=== PATIENT | male | born 1940 | race Two or more races ===

== ENCOUNTER 2021-08-24 05:13 | Inpatient (IN) | payer OTHER, MEDICAID ==
[~2021-08-24] VITALS: Ht 176.5 cm; Wt 77.9 kg
[2021-08-24 06:55] LABS: Albumin 2.6 g/dL (3.4-5.0); Calcium 8.3 mg/dL (8.5-10.1); Magnesium 3.1 mg/dL (1.6-2.6); Potassium 3.3 mmol/L (3.5-5.1)
[2021-08-24 06:59] LABS: Basophils # (auto) 0 10 ^3/uL (0-0.2); Basophils % (auto) 0.1 % (0.0-2.0); Eosinophils # (auto) 0 10 ^3/uL (0-0.8); Eosinophils % (auto) 0.1 % (0.0-7.0); Hematocrit 42.8 % (41.0-53.0); Hemoglobin 14.2 g/dL (13.5-17.5); Lymphocytes # (auto) 0.4 10 ^3/uL (0.4-5.4); Lymphocytes % (auto) 3.5 % (10.0-50.0); Mean Corpuscular Hemoglobin 29.8 pg (28.0-32.0); Mean Corpuscular Hgb Conc. 33.3 g/dL (32.0-36.0); Mean Corpuscular Volume 89.5 fL (80.0-100.0); Monocytes # (auto) 0.4 10 ^3/uL (0-1.3); Monocytes % (auto) 3.2 % (0.0-12.0); Neutrophils # (auto) 10.8 10 ^3/uL (1.6-8.6); Neutrophils % (auto) 93.1 % (37.0-80.0); Red Blood Cells 4.78 10^6/uL (4.5-5.90); Red Cell Distribution Width 13.4 % (11.8-14.3); White Blood Cell 11.6 10^3/uL (4.4-10.8)
[2021-08-24] MEDS ORDERED: AZITHROMYCIN 500MG/ 250ML 250 ML IV ONE (07:00)
[2021-08-24] MEDS ORDERED: ASCORBIC ACID 500 MG TAB PO ONE (07:00)
[2021-08-24] MEDS ORDERED: cefTRIAXone 1GM/50ML D5W 50 ML IV ONE (07:00)
[2021-08-24] MEDS ORDERED: ZINC SULFATE 220mg CAP or TAB PO ONE (07:00)
[2021-08-24] MEDS ORDERED: DexAMETHasone SOD PHOS 10MG/1ML VIAL INJ IV ONE (07:00)
[2021-08-24] MEDS ORDERED: CHOLECALCIFEROL (VITD3) 2,000 UNIT CAP/TAB PO ONE (07:00)
[2021-08-24 07:02] LABS: Total Protein 6.2 g/dL (6.4-8.2)
[2021-08-24 08:13] LABS: Lactic Acid w/Reflex 2.2 mmol/L (0.4-2.0)
[2021-08-24 08:28] LABS: INR 1.07 (0.9-1.15); Partial Thromboplastin Time 26.5 sec (23.6-33.0)
[2021-08-24] MEDS ORDERED: ENOXAPARIN SOD 60 MG/0.6 ML SYRINGE SC ONE (12:00)
[2021-08-24] MEDS ORDERED: MORPHINE SULFATE INJECTION 2 MG/ML SYRG IV PRN (13:15)
[2021-08-24] MEDS ORDERED: NITROGLYCERIN 0.4 MG SL TAB SL PRN (13:15)
[2021-08-24] MEDS ORDERED: ALUM & MAG HYDROX-SIMETH LIQ(MAALOX) 30 ML PO PRN (13:15)
[2021-08-24] MEDS ORDERED: DOCUSATE SOD 100 MG CAP PO PRN (13:15)
[2021-08-24] MEDS ORDERED: IOHEXOL 350 MG/ML 100ML IJ ONE (14:08)
[2021-08-24 23:19] VITALS: BP 130/80
[2021-08-25 05:00] VITALS: BP 143/72
[2021-08-25 06:58] LABS: Calcium 7.9 mg/dL (8.5-10.1); Potassium 3.6 mmol/L (3.5-5.1)
[2021-08-25 07:00] LABS: BUN/Creatinine Ratio 18.8
[2021-08-25 08:30] VITALS: BP 118/80
[2021-08-25] MEDS ORDERED: ENOXAPARIN SOD 40 MG/0.4 ML SYRINGE SC SCH (10:00)
[2021-08-25 12:30] VITALS: BP 141/82
[2021-08-25] MEDS ORDERED: DexAMETHasone SOD PHOS 10MG/1ML VIAL INJ IV ONE (14:00)
[2021-08-25] MEDS ORDERED: REMDESIVIR PER PHARMACY 0 ML IV SCH (14:00)
[2021-08-25] MEDS ORDERED: CHOLECALCIFEROL (VITD3) 2,000 UNIT CAP/TAB PO ONE (14:00)
[2021-08-25] MEDS ORDERED: ZINC SULFATE 220mg CAP or TAB PO ONE (14:00)
[2021-08-25] MEDS ORDERED: ASPirin 81 mg TAB PO ONE (14:00)
[2021-08-25] MEDS ORDERED: AZITHROMYCIN 500MG/ 250ML 250 ML IV ONE (14:00)
[2021-08-25] MEDS ORDERED: REMDESIVIR 200 MG in NS 210ml LOADING DOSE ADULT IV ONE (15:30)
[2021-08-25 17:00] VITALS: BP 136/77
[2021-08-25 21:39] VITALS: BP 122/82
[2021-08-25] MEDS: ENOXAPARIN SOD 80 MG/0.8ML SYRINGE SC SCH (21:40)
[2021-08-25] MEDS: ASCORBIC ACID 500 MG TAB PO SCH (21:40)
[2021-08-26 05:01] VITALS: BP 124/75
[2021-08-26 05:41] LABS: Albumin 2.1 g/dL (3.4-5.0); Calcium 7.4 mg/dL (8.5-10.1); Potassium 3.8 mmol/L (3.5-5.1)
[2021-08-26 05:46] LABS: BUN/Creatinine Ratio 23.6; Bilirubin, Total 0.7 mg/dL (0.2-1.0); Total Protein 4.8 g/dL (6.4-8.2)
[2021-08-26] MEDS: ASCORBIC ACID 500 MG TAB PO SCH ×2 (08:51→21:12)
[2021-08-26] MEDS: AZITHROMYCIN 500MG/ 250ML 250 ML IV SCH (08:51)
[2021-08-26] MEDS: DexAMETHasone SOD PHOS 10MG/1ML VIAL INJ IV SCH (08:51)
[2021-08-26] MEDS: PANTOPRAZOLE 40 MG TAB PO SCH (08:52)
[2021-08-26] MEDS: ASPirin 81 mg TAB PO SCH (08:52)
[2021-08-26] MEDS: ZINC SULFATE 220mg CAP or TAB PO SCH (08:53)
[2021-08-26] MEDS: CHOLECALCIFEROL (VITD3) 2,000 UNIT CAP/TAB PO SCH (08:54)
[2021-08-26] MEDS: ENOXAPARIN SOD 80 MG/0.8ML SYRINGE SC SCH ×2 (08:54→21:12)
[2021-08-26 09:00] VITALS: BP 131/80
[2021-08-26 13:00] VITALS: BP 131/72
[2021-08-26] MEDS: REMDESIVIR 100mg 100 MG in SODIUM CHL 0.9% 230 ML IV SCH (15:47)
[2021-08-26 17:00] VITALS: BP 126/76
[2021-08-26 22:21] VITALS: BP 139/85
[2021-08-27 05:22] VITALS: BP 131/67
[2021-08-27 06:43] LABS: Basophils # (auto) 0 10 ^3/uL (0-0.2); Basophils % (auto) 0.1 % (0.0-2.0); Eosinophils # (auto) 0 10 ^3/uL (0-0.8); Eosinophils % (auto) 0.2 % (0.0-7.0); Hematocrit 38.2 % (41.0-53.0); Hemoglobin 12.8 g/dL (13.5-17.5); Lymphocytes # (auto) 0.4 10 ^3/uL (0.4-5.4); Lymphocytes % (auto) 3.7 % (10.0-50.0); Mean Corpuscular Hemoglobin 29.7 pg (28.0-32.0); Mean Corpuscular Hgb Conc. 33.5 g/dL (32.0-36.0); Mean Corpuscular Volume 88.7 fL (80.0-100.0); Monocytes # (auto) 0.3 10 ^3/uL (0-1.3); Neutrophils # (auto) 10.6 10 ^3/uL (1.6-8.6); Red Blood Cells 4.31 10^6/uL (4.5-5.90); Red Cell Distribution Width 13.5 % (11.8-14.3); White Blood Cell 11.3 10^3/uL (4.4-10.8)
[2021-08-27 07:02] LABS: Albumin 2.2 g/dL (3.4-5.0); Calcium 7.7 mg/dL (8.5-10.1); Magnesium 2.4 mg/dL (1.6-2.6)
[2021-08-27 07:08] LABS: Bilirubin, Total 0.9 mg/dL (0.2-1.0); Total Protein 4.9 g/dL (6.4-8.2)
[2021-08-27 09:00] VITALS: BP 134/77
[2021-08-27] MEDS: ASPirin 81 mg TAB PO SCH (10:39)
[2021-08-27] MEDS: ZINC SULFATE 220mg CAP or TAB PO SCH (10:39)
[2021-08-27] MEDS: DexAMETHasone SOD PHOS 10MG/1ML VIAL INJ IV SCH (10:39)
[2021-08-27] MEDS: AZITHROMYCIN 500MG/ 250ML 250 ML IV SCH (10:39)
[2021-08-27] MEDS: ASCORBIC ACID 500 MG TAB PO SCH ×2 (10:40→21:24)
[2021-08-27] MEDS: ENOXAPARIN SOD 80 MG/0.8ML SYRINGE SC SCH ×2 (10:40→21:24)
[2021-08-27] MEDS: CHOLECALCIFEROL (VITD3) 2,000 UNIT CAP/TAB PO SCH (10:40)
[2021-08-27] MEDS: PANTOPRAZOLE 40 MG TAB PO SCH (10:40)
[2021-08-27] MEDS: REMDESIVIR 100mg 100 MG in SODIUM CHL 0.9% 230 ML IV SCH (15:10)
[2021-08-27] MEDS ORDERED: FUROSEMIDE 20 MG/2 ML VIAL IV ONE (17:00)
[2021-08-27 22:00] VITALS: BP 110/64
[2021-08-28 05:27] VITALS: BP 124/75
[2021-08-28 06:17] LABS: Calcium 7.7 mg/dL (8.5-10.1); Potassium 4.1 mmol/L (3.5-5.1)
[2021-08-28 06:20] LABS: Bilirubin, Total 0.9 mg/dL (0.2-1.0); Total Protein 4.6 g/dL (6.4-8.2)
[2021-08-28 09:11] VITALS: BP 125/75
[2021-08-28] MEDS: ENOXAPARIN SOD 80 MG/0.8ML SYRINGE SC SCH ×2 (10:30→21:10)
[2021-08-28] MEDS: CHOLECALCIFEROL (VITD3) 2,000 UNIT CAP/TAB PO SCH (10:30)
[2021-08-28] MEDS: PANTOPRAZOLE 40 MG TAB PO SCH (10:30)
[2021-08-28] MEDS: AZITHROMYCIN 500MG/ 250ML 250 ML IV SCH (10:30)
[2021-08-28] MEDS: ZINC SULFATE 220mg CAP or TAB PO SCH (10:30)
[2021-08-28] MEDS: DexAMETHasone SOD PHOS 10MG/1ML VIAL INJ IV SCH (10:30)
[2021-08-28] MEDS: ASCORBIC ACID 500 MG TAB PO SCH ×2 (10:30→21:10)
[2021-08-28] MEDS: ASPirin 81 mg TAB PO SCH (10:30)
[2021-08-28] MEDS: REMDESIVIR 100mg 100 MG in SODIUM CHL 0.9% 230 ML IV SCH (15:44)
[2021-08-28 17:00] VITALS: BP_SYST 125; BP_SYST 99; BP_DIAS 66; BP_DIAS 75
[2021-08-28 22:00] VITALS: BP 127/73
[2021-08-29 05:39] VITALS: BP 126/74
[2021-08-29 07:24] LABS: Calcium 7.6 mg/dL (8.5-10.1); Potassium 4.4 mmol/L (3.5-5.1)
[2021-08-29 07:30] LABS: Albumin 2.1 g/dL (3.4-5.0); BUN/Creatinine Ratio 32.1; Bilirubin, Total 0.8 mg/dL (0.2-1.0); Total Protein 4.6 g/dL (6.4-8.2)
[2021-08-29] MEDS: PANTOPRAZOLE 40 MG TAB PO SCH (08:32)
[2021-08-29] MEDS: ENOXAPARIN SOD 80 MG/0.8ML SYRINGE SC SCH ×2 (08:32→21:21)
[2021-08-29] MEDS: ASPirin 81 mg TAB PO SCH (08:32)
[2021-08-29] MEDS: ZINC SULFATE 220mg CAP or TAB PO SCH (08:32)
[2021-08-29] MEDS: CHOLECALCIFEROL (VITD3) 2,000 UNIT CAP/TAB PO SCH (08:32)
[2021-08-29] MEDS: AZITHROMYCIN 500MG/ 250ML 250 ML IV SCH (08:32)
[2021-08-29] MEDS: ASCORBIC ACID 500 MG TAB PO SCH ×2 (08:32→21:20)
[2021-08-29] MEDS: DexAMETHasone SOD PHOS 10MG/1ML VIAL INJ IV SCH (08:32)
[2021-08-29 09:00] VITALS: BP 132/71
[2021-08-29 13:00] VITALS: BP 109/54
[2021-08-29] MEDS: REMDESIVIR 100mg 100 MG in SODIUM CHL 0.9% 230 ML IV SCH (15:00)
[2021-08-29] MEDS: guaiFENesin-DM 100/10mg/5ml SYR PO PRN (16:10)
[2021-08-29] MEDS: SALINE 0.65 % NASAL SPRAY 45ML BOTTLE EACHNOSTRI SCH ×2 (16:10→21:20)
[2021-08-29 17:17] VITALS: BP 121/72
[2021-08-29 22:00] VITALS: BP 127/71
[2021-08-30 05:00] VITALS: BP 122/75
[2021-08-30] MEDS: SALINE 0.65 % NASAL SPRAY 45ML BOTTLE EACHNOSTRI SCH ×4 (05:33→21:29)
[2021-08-30 06:29] LABS: Potassium 4.7 mmol/L (3.5-5.1)
[2021-08-30 06:39] LABS: BUN/Creatinine Ratio 30.4; Calcium 7.9 mg/dL (8.5-10.1)
[2021-08-30] MEDS: DexAMETHasone SOD PHOS 10MG/1ML VIAL INJ IV SCH (08:54)
[2021-08-30] MEDS: PANTOPRAZOLE 40 MG TAB PO SCH (08:54)
[2021-08-30] MEDS: ASPirin 81 mg TAB PO SCH (08:54)
[2021-08-30] MEDS: AZITHROMYCIN 500MG/ 250ML 250 ML IV SCH (08:54)
[2021-08-30] MEDS: ASCORBIC ACID 500 MG TAB PO SCH ×2 (08:54→21:29)
[2021-08-30] MEDS: ZINC SULFATE 220mg CAP or TAB PO SCH (08:54)
[2021-08-30] MEDS: CHOLECALCIFEROL (VITD3) 2,000 UNIT CAP/TAB PO SCH (08:55)
[2021-08-30] MEDS: ENOXAPARIN SOD 80 MG/0.8ML SYRINGE SC SCH ×2 (08:55→21:30)
[2021-08-30 09:00] VITALS: BP 109/67
[2021-08-30 13:00] VITALS: BP 105/72
[2021-08-30 17:00] VITALS: BP 114/73
[2021-08-30 22:00] VITALS: BP 135/74
[2021-08-31 05:00] VITALS: BP 105/70
[2021-08-31] MEDS: SALINE 0.65 % NASAL SPRAY 45ML BOTTLE EACHNOSTRI SCH ×4 (05:30→20:38)
[2021-08-31 05:48] LABS: BUN/Creatinine Ratio 43.3; Calcium 8.1 mg/dL (8.5-10.1); Potassium 4.8 mmol/L (3.5-5.1)
[2021-08-31 09:00] VITALS: BP 101/51
[2021-08-31] MEDS: AZITHROMYCIN 500MG/ 250ML 250 ML IV SCH (10:02)
[2021-08-31] MEDS: ZINC SULFATE 220mg CAP or TAB PO SCH (10:02)
[2021-08-31] MEDS: ASPirin 81 mg TAB PO SCH (10:02)
[2021-08-31] MEDS: DexAMETHasone SOD PHOS 10MG/1ML VIAL INJ IV SCH (10:02)
[2021-08-31] MEDS: PANTOPRAZOLE 40 MG TAB PO SCH (10:02)
[2021-08-31] MEDS: guaiFENesin-DM 100/10mg/5ml SYR PO PRN (10:03)
[2021-08-31] MEDS: ENOXAPARIN SOD 80 MG/0.8ML SYRINGE SC SCH ×2 (10:03→20:38)
[2021-08-31] MEDS: CHOLECALCIFEROL (VITD3) 2,000 UNIT CAP/TAB PO SCH (10:03)
[2021-08-31] MEDS: ASCORBIC ACID 500 MG TAB PO SCH ×2 (10:03→20:38)
[2021-08-31 13:00] VITALS: BP 114/63
[2021-08-31 17:00] VITALS: BP 99/55
[2021-08-31 22:36] VITALS: BP 105/66
[2021-08-31] MEDS: ACETAMINOPHEN 325 MG TAB PO PRN (23:54)
[2021-09-01] VITALS (11 sets, daily range): BP systolic 89–106; BP diastolic 43–65
[2021-09-01] MEDS: LORazepam 2MG/ML-1ML VIAL IV PRN (00:53)
[2021-09-01] MEDS ORDERED: ETOMIDATE (2MG/ML) 20ML VIAL IV ONE (01:04)
[2021-09-01] MEDS ORDERED: SUCCINYLCHOLINE CHLORIDE 20 MG/ML 10ML VIAL IV ONE (01:04)
[2021-09-01] MEDS ORDERED: SODIUM CHLORIDE 0.9% 250 ML IV ONE (01:15)
[2021-09-01 01:19] LABS: Hematocrit 24.9 % (41.0-53.0); Red Cell Distribution Width 14.5 % (11.8-14.3)
[2021-09-01 01:21] LABS: Hemoglobin 7.8 g/dL (13.5-17.5); Mean Corpuscular Hemoglobin 29.5 pg (28.0-32.0); Mean Corpuscular Hgb Conc. 31.2 g/dL (32.0-36.0); Mean Corpuscular Volume 94.7 fL (80.0-100.0); Red Blood Cells 2.63 10^6/uL (4.5-5.90); White Blood Cell 17.6 10^3/uL (4.4-10.8)
[2021-09-01 01:22] LABS: Basophils % (manual) 0 (0.0-2.0); Blast Cells 0; Eosinophils % (manual) 0 (0-7); Promyelocytes % 0; Reactive Lymphocytes 0
[2021-09-01 01:33] LABS: Albumin 1.7 g/dL (3.4-5.0); Calcium 8.1 mg/dL (8.5-10.1); Potassium 4.8 mmol/L (3.5-5.1)
[2021-09-01 01:37] LABS: BUN/Creatinine Ratio 38.6; Bilirubin, Total 0.5 mg/dL (0.2-1.0); Total Protein 4.1 g/dL (6.4-8.2)
[2021-09-01] MEDS ORDERED: SODIUM BICARBONATE 8.4 % INJ 50ML VIAL IV ONE (02:00)
[2021-09-01 02:03] LABS: Band Neutrophils % (manual) 5; Lymphocytes % (manual) 13 (10.0-50.0); Metamyelocytes % 2; Monocytes % (manual) 6 (0-12); Myelocytes % 1
[2021-09-01] MEDS: SALINE 0.65 % NASAL SPRAY 45ML BOTTLE EACHNOSTRI SCH ×4 (06:29→21:18)
[2021-09-01 06:31] LABS: Calcium 7.8 mg/dL (8.5-10.1)
[2021-09-01] MEDS: ENOXAPARIN SOD 80 MG/0.8ML SYRINGE SC SCH (10:00)
[2021-09-01] MEDS: DexAMETHasone SOD PHOS 10MG/1ML VIAL INJ IV SCH (10:51)
[2021-09-01] MEDS: ZINC SULFATE 220mg CAP or TAB PO SCH (10:52)
[2021-09-01] MEDS: ASPirin 81 mg TAB PO SCH (10:52)
[2021-09-01] MEDS: AZITHROMYCIN 500MG/ 250ML 250 ML IV SCH (10:52)
[2021-09-01] MEDS: CHOLECALCIFEROL (VITD3) 2,000 UNIT CAP/TAB PO SCH (10:53)
[2021-09-01] MEDS: ASCORBIC ACID 500 MG TAB PO SCH ×2 (10:53→21:19)
[2021-09-01 17:40] LABS: Hematocrit 26.6 % (41.0-53.0); Hemoglobin 8.7 g/dL (13.5-17.5); Mean Corpuscular Hemoglobin 30.3 pg (28.0-32.0); Mean Corpuscular Hgb Conc. 32.9 g/dL (32.0-36.0); Mean Corpuscular Volume 92.2 fL (80.0-100.0); Red Blood Cells 2.88 10^6/uL (4.5-5.90); Red Cell Distribution Width 14.5 % (11.8-14.3)
[2021-09-01 17:43] LABS: Band Neutrophils % (manual) 0; Basophils % (manual) 0 (0.0-2.0); Blast Cells 0; Eosinophils % (manual) 0 (0-7); Metamyelocytes % 0; Myelocytes % 0; Promyelocytes % 0; Reactive Lymphocytes 0
[2021-09-01 17:51] LABS: INR 1.19 (0.9-1.15)
[2021-09-01 17:54] LABS: Albumin 1.9 g/dL (3.4-5.0); BUN/Creatinine Ratio 53.3; Calcium 7.9 mg/dL (8.5-10.1); Potassium 5.1 mmol/L (3.5-5.1)
[2021-09-01 17:57] LABS: Lymphocytes % (manual) 10 (10.0-50.0); Monocytes % (manual) 8 (0-12)
[2021-09-01 17:58] LABS: Bilirubin, Total 0.5 mg/dL (0.2-1.0)
[2021-09-01] MEDS: PANTOPRAZOLE 40 MG/10 ML VIAL INJ IV SCH (21:19)
[2021-09-02 05:09] VITALS: BP 95/58
[2021-09-02] MEDS: SALINE 0.65 % NASAL SPRAY 45ML BOTTLE EACHNOSTRI SCH ×4 (05:33→22:13)
[2021-09-02 05:48] LABS: Hematocrit 23.2 % (41.0-53.0); Hemoglobin 7.8 g/dL (13.5-17.5); Mean Corpuscular Hemoglobin 31.1 pg (28.0-32.0); Mean Corpuscular Hgb Conc. 33.7 g/dL (32.0-36.0); Mean Corpuscular Volume 92.3 fL (80.0-100.0); Red Blood Cells 2.51 10^6/uL (4.5-5.90); Red Cell Distribution Width 14.5 % (11.8-14.3)
[2021-09-02 06:02] LABS: Albumin 1.8 g/dL (3.4-5.0); BUN/Creatinine Ratio 41.3; Calcium 7.5 mg/dL (8.5-10.1)
[2021-09-02 06:04] LABS: Bilirubin, Total 0.4 mg/dL (0.2-1.0); Total Protein 3.8 g/dL (6.4-8.2)
[2021-09-02 06:21] LABS: Band Neutrophils % (manual) 0; Basophils % (manual) 0 (0.0-2.0); Blast Cells 0; Eosinophils % (manual) 0 (0-7); Metamyelocytes % 0; Myelocytes % 0; Promyelocytes % 0; Reactive Lymphocytes 0
[2021-09-02] MEDS ORDERED: LIDOCAINE 2%HCL (LOCAL ANESTH.) INJ 20ML MDV ONE (08:30)
[2021-09-02] MEDS ORDERED: IOHEXOL 350 MG/ML 100ML IJ ONE (08:30)
[2021-09-02] MEDS ORDERED: MIDAZOLAM HCL 2MG/2ML 2ml VIAL (1mg/ml) ONE (08:37)
[2021-09-02] MEDS ORDERED: fentaNYL CITRATE 100 MCG/2 ML VL ONE (08:37)
[2021-09-02 08:49] LABS: Lymphocytes % (manual) 5 (10.0-50.0); Monocytes % (manual) 6 (0-12)
[2021-09-02 09:00] VITALS: BP 103/60
[2021-09-02] MEDS: DexAMETHasone SOD PHOS 10MG/1ML VIAL INJ IV SCH ×2 (09:29→12:47)
[2021-09-02] MEDS: CHOLECALCIFEROL (VITD3) 2,000 UNIT CAP/TAB PO SCH ×2 (09:30→12:47)
[2021-09-02] MEDS: AZITHROMYCIN 500MG/ 250ML 250 ML IV SCH ×2 (09:30→12:47)
[2021-09-02] MEDS: ZINC SULFATE 220mg CAP or TAB PO SCH ×2 (09:30→12:48)
[2021-09-02] MEDS: PANTOPRAZOLE 40 MG/10 ML VIAL INJ IV SCH ×3 (09:30→22:06)
[2021-09-02] MEDS: ASPirin 81 mg TAB PO SCH ×2 (09:30→12:47)
[2021-09-02] MEDS: ASCORBIC ACID 500 MG TAB PO SCH ×3 (09:30→22:06)
[2021-09-02] MEDS: SUCRALFATE 1 GM/10 ML ORAL SUSP PO SCH ×3 (12:47→22:06)
[2021-09-02 13:00] VITALS: BP 97/56
[2021-09-02 17:00] VITALS: BP 98/61
[2021-09-02 22:00] VITALS: BP 119/58
[2021-09-03] VITALS (7 sets, daily range): BP systolic 100–122; BP diastolic 51–83
[2021-09-03] MEDS: SUCRALFATE 1 GM/10 ML ORAL SUSP PO SCH ×4 (05:42→22:18)
[2021-09-03] MEDS: SALINE 0.65 % NASAL SPRAY 45ML BOTTLE EACHNOSTRI SCH ×4 (05:42→22:18)
[2021-09-03 06:31] LABS: BUN/Creatinine Ratio 36.1; Calcium 7.7 mg/dL (8.5-10.1); Potassium 4.3 mmol/L (3.5-5.1)
[2021-09-03 06:48] LABS: Hematocrit 19.7 % (41.0-53.0); Mean Corpuscular Hemoglobin 32.3 pg (28.0-32.0); Mean Corpuscular Hgb Conc. 34.8 g/dL (32.0-36.0); Red Blood Cells 2.12 10^6/uL (4.5-5.90); Red Cell Distribution Width 14.3 % (11.8-14.3); White Blood Cell 13.1 10^3/uL (4.4-10.8)
[2021-09-03 06:49] LABS: Hemoglobin 6.9 g/dL (13.5-17.5)
[2021-09-03 06:50] LABS: Band Neutrophils % (manual) 0; Basophils % (manual) 0 (0.0-2.0); Blast Cells 0; Eosinophils % (manual) 0 (0-7); Metamyelocytes % 0; Promyelocytes % 0; Reactive Lymphocytes 0
[2021-09-03 08:20] LABS: Lymphocytes % (manual) 11 (10.0-50.0); Monocytes % (manual) 2 (0-12); Myelocytes % 1
[2021-09-03] MEDS: PANTOPRAZOLE 40 MG/10 ML VIAL INJ IV SCH ×2 (10:17→22:18)
[2021-09-03] MEDS: DexAMETHasone SOD PHOS 10MG/1ML VIAL INJ IV SCH (10:17)
[2021-09-03] MEDS: ZINC SULFATE 220mg CAP or TAB PO SCH (10:17)
[2021-09-03] MEDS: guaiFENesin-DM 100/10mg/5ml SYR PO PRN ×2 (10:18→22:17)
[2021-09-03] MEDS: AZITHROMYCIN 500MG/ 250ML 250 ML IV SCH (10:18)
[2021-09-03] MEDS: ASPirin 81 mg TAB PO SCH (10:18)
[2021-09-03] MEDS: ASCORBIC ACID 500 MG TAB PO SCH ×2 (10:18→22:18)
[2021-09-03] MEDS: CHOLECALCIFEROL (VITD3) 2,000 UNIT CAP/TAB PO SCH (10:18)
[2021-09-03] MEDS ORDERED: FUROSEMIDE 40 MG/4 ML VIAL IV ONE (12:15)
[2021-09-04] MEDS: guaiFENesin-DM 100/10mg/5ml SYR PO PRN (01:29)
[2021-09-04 05:02] VITALS: BP 136/64
[2021-09-04] MEDS: SALINE 0.65 % NASAL SPRAY 45ML BOTTLE EACHNOSTRI SCH ×4 (05:13→22:02)
[2021-09-04] MEDS: SUCRALFATE 1 GM/10 ML ORAL SUSP PO SCH ×4 (05:14→22:01)
[2021-09-04 06:57] LABS: Hematocrit 22.8 % (41.0-53.0); Hemoglobin 7.8 g/dL (13.5-17.5); Mean Corpuscular Hemoglobin 31.7 pg (28.0-32.0); Red Blood Cells 2.45 10^6/uL (4.5-5.90); White Blood Cell 13.2 10^3/uL (4.4-10.8)
[2021-09-04 07:01] LABS: Basophils % (manual) 0 (0.0-2.0); Blast Cells 0; Promyelocytes % 0; Reactive Lymphocytes 0
[2021-09-04 07:16] LABS: Calcium 7.6 mg/dL (8.5-10.1); Magnesium 2.3 mg/dL (1.6-2.6); Potassium 4.1 mmol/L (3.5-5.1)
[2021-09-04 07:19] LABS: BUN/Creatinine Ratio 38.1
[2021-09-04 08:09] LABS: Band Neutrophils % (manual) 1; Eosinophils % (manual) 1 (0-7); Lymphocytes % (manual) 6 (10.0-50.0); Metamyelocytes % 1; Monocytes % (manual) 6 (0-12); Myelocytes % 2
[2021-09-04 09:00] VITALS: BP 109/54
[2021-09-04] MEDS: DexAMETHasone SOD PHOS 10MG/1ML VIAL INJ IV SCH (09:55)
[2021-09-04] MEDS: PANTOPRAZOLE 40 MG/10 ML VIAL INJ IV SCH ×2 (09:55→22:01)
[2021-09-04] MEDS: ASPirin 81 mg TAB PO SCH (09:56)
[2021-09-04] MEDS: ZINC SULFATE 220mg CAP or TAB PO SCH (09:56)
[2021-09-04] MEDS: ASCORBIC ACID 500 MG TAB PO SCH ×2 (09:56→22:01)
[2021-09-04] MEDS: CHOLECALCIFEROL (VITD3) 2,000 UNIT CAP/TAB PO SCH (09:56)
[2021-09-04] MEDS: AZITHROMYCIN 500MG/ 250ML 250 ML IV SCH (09:56)
[2021-09-04 13:00] VITALS: BP 96/59
[2021-09-04 17:00] VITALS: BP 97/67
[2021-09-04] MEDS: Pro-Stat SF 30ml Vanilla PO SCH (18:49)
[2021-09-04 22:00] VITALS: BP 108/50
[2021-09-05] MEDS: guaiFENesin-DM 100/10mg/5ml SYR PO PRN ×2 (03:28→21:28)
[2021-09-05] MEDS: ACETAMINOPHEN 325 MG TAB PO PRN ×2 (03:29→21:28)
[2021-09-05 05:25] VITALS: BP 118/64
[2021-09-05] MEDS: SALINE 0.65 % NASAL SPRAY 45ML BOTTLE EACHNOSTRI SCH ×4 (06:07→21:27)
[2021-09-05] MEDS: SUCRALFATE 1 GM/10 ML ORAL SUSP PO SCH ×4 (06:08→21:27)
[2021-09-05] MEDS: PANTOPRAZOLE 40 MG/10 ML VIAL INJ IV SCH ×2 (08:27→21:27)
[2021-09-05] MEDS: DexAMETHasone SOD PHOS 10MG/1ML VIAL INJ IV SCH (08:27)
[2021-09-05] MEDS: ZINC SULFATE 220mg CAP or TAB PO SCH (08:28)
[2021-09-05] MEDS: CHOLECALCIFEROL (VITD3) 2,000 UNIT CAP/TAB PO SCH (08:28)
[2021-09-05] MEDS: ASPirin 81 mg TAB PO SCH (08:28)
[2021-09-05] MEDS: ASCORBIC ACID 500 MG TAB PO SCH ×2 (08:28→21:27)
[2021-09-05] MEDS: AZITHROMYCIN 500MG/ 250ML 250 ML IV SCH (08:33)
[2021-09-05] MEDS: Pro-Stat SF 30ml Vanilla PO SCH ×2 (08:56→18:08)
[2021-09-05 09:00] VITALS: BP 95/64
[2021-09-05 13:00] VITALS: BP 103/61
[2021-09-05 17:01] VITALS: BP 98/56
[2021-09-05 22:23] VITALS: BP 95/55
[2021-09-06] VITALS (7 sets, daily range): BP systolic 89–133; BP diastolic 51–80
[2021-09-06] MEDS: SALINE 0.65 % NASAL SPRAY 45ML BOTTLE EACHNOSTRI SCH ×4 (05:20→22:17)
[2021-09-06] MEDS: SUCRALFATE 1 GM/10 ML ORAL SUSP PO SCH ×4 (06:46→22:18)
[2021-09-06] MEDS: Pro-Stat SF 30ml Vanilla PO SCH (08:00)
[2021-09-06] MEDS: ZINC SULFATE 220mg CAP or TAB PO SCH (09:27)
[2021-09-06] MEDS: ASPirin 81 mg TAB PO SCH (09:27)
[2021-09-06] MEDS: AZITHROMYCIN 500MG/ 250ML 250 ML IV SCH (09:27)
[2021-09-06] MEDS: PANTOPRAZOLE 40 MG/10 ML VIAL INJ IV SCH ×2 (09:27→22:18)
[2021-09-06] MEDS: ASCORBIC ACID 500 MG TAB PO SCH ×2 (09:27→22:18)
[2021-09-06] MEDS: CHOLECALCIFEROL (VITD3) 2,000 UNIT CAP/TAB PO SCH (09:28)
[2021-09-06] MEDS: DexAMETHasone SOD PHOS 10MG/1ML VIAL INJ IV SCH (10:00)
[2021-09-06] MEDS ORDERED: SODIUM CHLORIDE 0.9% 500 ML IV ONE (16:15)
[2021-09-07] MEDS: LORazepam 2MG/ML-1ML VIAL IV PRN (04:39)
[2021-09-07 05:00] VITALS: BP 101/55
[2021-09-07] MEDS: SALINE 0.65 % NASAL SPRAY 45ML BOTTLE EACHNOSTRI SCH (06:17)
[2021-09-07] MEDS: SUCRALFATE 1 GM/10 ML ORAL SUSP PO SCH (06:18)
[2021-09-07 06:41] LABS: Potassium 4.4 mmol/L (3.5-5.1)
[2021-09-07 06:51] LABS: BUN/Creatinine Ratio 64.1
== END 2021-09-07 15:56 | DRG 871 ==
LOC: EDBD 05:13 → ER 05:13 → TELE 13:07 → TELE-EAST 23:18 → TELE-E-ADS 09-04 20:10 → TELE-EAST 09-04 20:35
PROVIDERS: ADMIT Internal Medicine; ATTEND Internal Medicine Geriatric Medicine
PROC: XW033E5 Introduction of Remdesivir Anti-infective into Peripheral Vein, Percutaneous Approach, New Technology Group 5 (ICD-10-PCS; 2021-08-25)
PROC: 30233N1 Transfusion of Nonautologous Red Blood Cells into Peripheral Vein, Percutaneous Approach (ICD-10-PCS; 2021-09-01)
PROC: 06H03DZ Insertion of Intraluminal Device into Inferior Vena Cava, Percutaneous Approach (ICD-10-PCS; principal; 2021-09-02)
PROC: 05HD33Z Insertion of Infusion Device into Right Cephalic Vein, Percutaneous Approach (ICD-10-PCS; 2021-09-03)
PROC: B54MZZA Ultrasonography of Right Upper Extremity Veins, Guidance (ICD-10-PCS; 2021-09-03)
PROC: 5A12012 Performance of Cardiac Output, Single, Manual (ICD-10-PCS; 2021-09-07)
DX: A41.9 Sepsis, unspecified organism (principal); J96.01 Acute respiratory failure with hypoxia; J12.82 Pneumonia due to coronavirus disease 2019; U07.1 COVID-19; I21.4 Non-ST elevation (NSTEMI) myocardial infarction; K29.01 Acute gastritis with bleeding; E44.0 Moderate protein-calorie malnutrition; D62 Acute posthemorrhagic anemia; I82.403 Acute embolism and thrombosis of unspecified deep veins of lower extremity, bilateral; E87.6 Hypokalemia; K80.20 Calculus of gallbladder without cholecystitis without obstruction; R79.89 Other specified abnormal findings of blood chemistry; R94.4 Abnormal results of kidney function studies; E66.9 Obesity, unspecified; Z79.01 Long term (current) use of anticoagulants; Z95.828 Presence of other vascular implants and grafts; Z68.27 Body mass index [BMI] 27.0-27.9, adult; Z23 Encounter for immunization
CPT/HCPCS: 31500; 36415; 36600; 37191; 71045; 71275; 80048; 80053; 82728; 82805; 83605; 83615; 83735; 83880; 84484; 85007; 85025; 85027; 85379; 85610; 85730; 86850; 86900; 86901; 86920; 87040; 87426; 92950; 93005; 93970; 94760; 96365; 96368; 96372; 96375; 99152; 99291; C9113; G0378; J0330; J0696; J1100; J2250